=== PATIENT | female | born 2000 | race Hispanic/Latino ===

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

== ENCOUNTER → 2020-06-17 | Outpatient (CLI) | payer OTHER | LOC: LAB.O 13:53 | PROVIDERS: ATTEND Obstetrics & Gynecology | DX: Z32.01 Encounter for pregnancy test, result positive (principal); Z3A.36 36 weeks gestation of pregnancy ==